=== PATIENT | female | born 1950 | race Caucasian/White ===

== ENCOUNTER 2017-01-02 10:05 | Outpatient (CLI) | payer MEDICARE, OTHER ==
--- NOTE | 2017-01-03 15:53 | Mammography Report ---
DIGITAL SCREENING MAMMOGRAM: 01/02/2017 CLINICAL INDICATION: A 66-year-old, for screening, history of benign right breast biopsy. COMPARISON: 06/2012, 03/2011, 10/2009, 05/2008, 05/2007. TECHNIQUE: Routine CC and MLO projections were obtained of the breasts. FINDINGS: The breasts demonstrate scattered fibroglandular densities bilaterally. Coarse and punctat e, typically benign calcifications are present. Intramammary lymph node in the left breast is stable. No suspicious masses, clustered microcalcifications, or regions of architectural distortion are iden tified. IMPRESSION: BENIGN FINDINGS. RECOMMENDATION: ROUTINE ANNUAL SCREENING UNLESS OTHERWISE CLINICALLY INDICATED. BIRADS CATEGORY 2-BENIGN FINDINGS. STANDARD QUALIFYING STATEMENTS 1. This examination was reviewed with the aid of Computer-Aided Detection (CAD). 2. A negative or benign imaging report should not delay biopsy if clinically suspicious findings are present. Consider surgical consultation if warranted. More than 5% of cancers are not identified by i maging. 3. Dense breasts may obscure an underlying neoplasm. JOB #: [id number] EXT JOB #:[id number]
== END 2017-01-02 10:06 | disposition home or self-care (01) ==
LOC: DI 10:05
PROVIDERS: ATTEND Physician Assistant
DX: Z12.31 Encounter for screening mammogram for malignant neoplasm of breast (principal)
CPT/HCPCS: 77067

== ENCOUNTER 2018-07-02 16:26 | Emergency (ER) | payer MEDICARE, OTHER ==
[2018-07-02] MEDS ORDERED: predniSONE 20 MG TABLET PO STA (16:56)
[2018-07-02] MEDS ORDERED: ALBUTEROL NEB 2.5 MG/3 ML INH STA (16:56)
[2018-07-02] MEDS ORDERED: BENZONATATE 100 MG CAPSULE PO STA (16:56)
--- NOTE | 2018-07-02 16:57 | ED Physician Documentation ---
PD HPI URI - Stated complaint Stated Complaint: SOA/COUGH/RT EAR PX - Chief complaint Chief Complaint: Resp - History obtained from History obtained from: Patient, Family - History of Present Illness Timing - onset: Other (Sick for about 2 weeks with increasing productive cough and shortness of breath acutely worse since yesterday. She has been wheezing. She denies pedal edema or calf pain. She had low-grade fevers at home.) Review of Systems Constitutional: reports: Fever, Chills, Fatigue Nose: denies: Rhinorrhea / runny nose, Congestion Throat: denies: Sore throat Respiratory: reports: Dyspnea, Cough GI: denies: Abdominal Pain PD PAST MEDICAL HISTORY - Past Medical History Cardiovascular: Hypertension, High cholesterol Endocrine/Autoimmune: Type 2 diabetes Psych: Anxiety, Obsessive compulsive disorder Musculoskeletal: Fibromyalgia - Past Surgical History Past Surgical History: Yes Ortho: Knee replacement, Carpal Tunnel surgery /CLOTH COLORS EXAMINER: Hysterectomy - Present Medications Home Medications: Ambulatory Orders Medication Instructions Recorded Confirmed ALPRAZolam [Xanax] 0.25 mg PO BID PRN 09/23/12 09/21/14 Diazepam [Valium] 5 mg PO Q6-8H PRN #15 tablet 09/23/12 09/21/14 Enoxaparin [Lovenox] 100 mg SUBQ Q12H #10 syringe 09/23/12 09/21/14 Escitalopram [Lexapro] 20 mg PO DAILY 09/23/12 09/21/14 Gabapentin 300 mg PO TID 09/23/12 09/21/14 Omeprazole [PriLOSEC] 20 mg PO DAILY 09/23/12 09/21/14 Triamterene/Hydrochlorothiazid 1 each PO BID 09/23/12 09/21/14 [Triamterene-Hctz 75-50 mg Tab] Warfarin Sodium [Coumadin] 5 mg PO DAILY #15 tablet 09/23/12 09/21/14 Zolpidem [Ambien] 10 mg PO HS 09/23/12 09/21/14 Albuterol Sulfate [Albuterol 2 puffs IH Q4HR PRN #1 hfa.aer.ad 09/21/14 Sulfate Hfa] Azithromycin [Zithromax] 250 mg PO DAILY #4 tablet 09/21/14 Benzonatate [Tessalon] 100 mg PO TID PRN #20 capsule 09/21/14 Dexamethasone [Decadron] 4 mg PO BIDWM #8 tablet 09/21/14 Albuterol Sulf [Ventolin Hfa 1 - 2 puffs INH Q4HR PRN #1 inhaler 07/02/18 Inhaler] Benzonatate [Tessalon Perle] 100 - 200 mg PO TID PRN #30 capsule 07/02/18 Doxycycline Hyclate 100 mg PO BID #20 capsule 07/02/18 predniSONE [Deltasone] 60 mg PO DAILY 5 Days tablet 07/02/18 - Allergies Allergies/Adverse Reactions: Allergies Allergy/AdvReac Type Severity Reaction Status Date / Time phenylalanine Allergy Intermediate Itching Verified 07/02/18 16:41 codeine [Codeine] Allergy Mild UNKNOWN Verified 07/02/18 16:41 diphenhydramine HCl * Allergy Mild UNKNOWN Verified 07/02/18 16:41 [From Benadryl] hydrocodone [Hydrocodone] AdvReac Intermediate CHEST Verified 07/02/18 16:41 TIGHTNESS - Social History Does the pt smoke?: Yes Smoking Status: Current every day smoker Does the pt drink ETOH?: No - Family History Family history: reports: Non contributory PD ED PE NORMAL - Vitals Vital signs reviewed: Yes - General General: Alert and oriented X 3, Other (Frequent coughing) - HEENT HEENT: PERRL, EOMI - Neck Neck: Supple, no meningeal sign, No bony TTP - Cardiac Cardiac: RRR, No murmur - Respiratory Respiratory: No respiratory distress, Other (Mildly wheezy throughout, good air motion) - Abdomen Abdomen: Soft, Non tender - Back Back: No CVA TTP, No spinal TTP - Derm Derm: Normal color, Warm and dry, No rash - Extremities Extremities: No edema, No calf tenderness / cord - Neuro Neuro: Alert and oriented X 3, Normal speech Results - Vitals Vitals: Vital Signs - 24 hr 07/02/18 07/02/18 07/02/18 16:38 17:09 18:26 Temperature 36.8 C 37.7 C H Heart Rate 107 H 104 H 104 H Respiratory 26 H 16 28 H Rate Blood Pressure 136/71 H 158/81 H O2 Saturation 93 94 Oxygen O2 Source Room air - Labs Labs: Laboratory Tests 02/19/19 02/19/19 02/19/19 17:09 17:09 17:09 WBC 14.6 H RBC 4.10 L Hgb 12.8 Hct 38.1 MCV 92.9 MCH 31.1 H MCHC 33.5 RDW 13.7 Plt Count 257 MPV 8.6 Neut # (Auto) 12.1 H Lymph # (Auto) 1.5 Webb # (Auto) 0.9 Eos # (Auto) 0.1 Baso # (Auto) 0.1 Absolute Nucleated RBC 0.01 Nucleated RBC % 0.1 Sodium 132 L Potassium 3.6 Chloride 98 L Carbon Dioxide 21 Anion Gap 13.0 BUN 22 H Creatinine 1.3 H Estimated GFR (MDRD) 41 L Glucose 161 H Calcium 9.2 Total Bilirubin 0.7 AST 27 ALT 22 Alkaline Phosphatase 59 Troponin I < 0.04 Total Protein 8.3 H Albumin 3.9 Globulin 4.4 H Albumin/Globulin Ratio 0.9 L Lipase 24 Influenza A (Rapid) Influenza B (Rapid) 07/02/18 17:43 WBC RBC Hgb Hct MCV MCH MCHC RDW Plt Count MPV Neut # (Auto) Lymph # (Auto) Webb # (Auto) Eos # (Auto) Baso # (Auto) Absolute Nucleated RBC Nucleated RBC % Sodium Potassium Chloride Carbon Dioxide Anion Gap BUN Creatinine Estimated GFR (MDRD) Glucose Calcium Total Bilirubin AST ALT Alkaline Phosphatase Troponin I Total Protein Albumin Globulin Albumin/Globulin Ratio Lipase Influenza A (Rapid) Negative Influenza B (Rapid) Negative - Rads (name of study) 2v Chest Radiology: EMP read contemporaneously PD MEDICAL DECISION MAKING - ED course ED course: This is a 67-year-old woman with long-standing tobacco abuse who presents with a bronchitic type illness. Her chest x-ray is clear. She is wheezy on exam but nothing focal. Her pulse oximetry is normal. She is feeling somewhat improved after Tessalon and another breathing treatment here. Noting that codeine was held given her allergy to same. She will be started on antibiotics given the high risk of underlying lung disease and COPD although she carries no formal diagnosis of this. Also steroids. Departure - Departure Disposition: 01 Home, Self Care Clinical Impression: Bronchitis Condition: Good Record reviewed to determine appropriate education?: Yes Instructions: ED Bronchitis Asthmatic Prescriptions: Albuterol Sulf [Ventolin Hfa Inhaler] 1 - 2 puffs INH Q4HR PRN #1 inhaler PRN Reason: Shortness Of Air/Wheezing Benzonatate [Tessalon Perle] 100 - 200 mg PO TID PRN #30 capsule PRN Reason: Cough Doxycycline Hyclate 100 mg PO BID #20 capsule predniSONE [Deltasone] 60 mg PO DAILY 5 Days tablet Comments: Call your doctor to arrange a follow-up appointment, make the next available appointment. In the interim, return anytime if worse or if new symptoms develop. . As discussed it is imperative to quit smoking.
[2018-07-02 17:15] LABS: BASOPHILS # (AUTO) 0.1 10^3/uL (0.0-0.1); BASOPHILS % (AUTO) 0.5 %; EOSINOPHILS # (AUTO) 0.1 10^3/uL (0.0-0.7); EOSINOPHILS % (AUTO) 0.5 %; HGB - HEMOGLOBIN 12.8 g/dL (12.0-16.0); LYMPHOCYTES # (AUTO) 1.5 10^3/uL (1.5-3.5); LYMPHOCYTES % (AUTO) 10.5 %; MEAN CORPUSCULAR HEMOGLOBIN 31.1 pg (27.0-31.0); MEAN CORPUSCULAR HGB CONC 33.5 g/dL (32.0-36.0); MEAN CORPUSCULAR VOLUME 92.9 fL (81.0-99.0); MEAN PLATELET VOLUME 8.6 fL (7.9-10.8); MONOCYTES # (AUTO) 0.9 10^3/uL (0.0-1.0); MONOCYTES % (AUTO) 5.8 %; NEUTROPHILS # (AUTO) 12.1 10^3/uL (1.5-6.6); NEUTROPHILS % (AUTO) 82.7 %; PLT - PLATELET COUNT 257 10^3/uL (130-450); RED CELL DISTRIBUTION WIDTH 13.7 % (12.0-15.0); WHITE BLOOD COUNT 14.6 x10^3/uL (4.8-10.8)
[2018-07-02 17:30] LABS: ALBUMIN 3.9 g/dL (3.2-5.5); ALBUMIN/GLOBULIN RATIO 0.9 (1.0-2.2); BILIRUBIN,TOTAL 0.7 mg/dL (0.2-1.0); CALCIUM 9.2 mg/dL (8.5-10.3); CREATININE 1.3 mg/dL (0.4-1.0); TOTAL PROTEIN 8.3 g/dL (6.7-8.2)
--- NOTE | 2018-07-02 18:29 | XRAY Report ---
Reason: cough Procedure Date: 07/02/2018 Accession Number: [id number] / [id number] Procedure: XR - Chest 2 View X-Ray CPT Code: 83622 FULL RESULT: EXAM: CHEST RADIOGRAPHY EXAM DATE: 07/02/2018 06:00 PM. CLINICAL HISTORY: Persistent cough. COMPARISON: CHEST 2 VIEW PA/LAT 04/01/2015 3:22 PM. TECHNIQUE: 2 views. FINDINGS: Lungs/Pleura: No focal opacities evident. No pleural effusion. No pneumothorax. Normal volumes. Mediastinum: Heart and mediastinal contours are unremarkable. Other: No compression fractures. IMPRESSION: Normal 2-view chest radiography. RADIA
[2018-07-02] MEDS ORDERED: DOXYCYCLINE 100 MG TABLET PO STA (18:59)
[2018-07-02 19:13] VITALS: BP 166/85
== END 2018-07-02 19:21 | disposition home or self-care (01) ==
LOC: ED 16:26
DX: J40 Bronchitis, not specified as acute or chronic (principal); F17.200 Nicotine dependence, unspecified, uncomplicated; I10 Essential (primary) hypertension; E11.9 Type 2 diabetes mellitus without complications; Z79.01 Long term (current) use of anticoagulants
CPT/HCPCS: 36415; 71046; 80053; 83690; 84484; 85025; 87275; 87276; 94640; 99283; A9270; J7512

== ENCOUNTER 2018-10-25 13:46 | Outpatient (CLI) | payer MEDICARE, OTHER ==
--- NOTE | 2018-10-28 09:06 | MRI Report ---
Reason: SPINAL STENOSIS, LUMBAR REGION W/NEUROGENIC CLAUDI Procedure Date: 10/25/2018 Accession Number: [id number] / [id number] Procedure: MRI - Lumbar Spine W/O CPT Code: FULL RESULT: EXAM: MRI LUMBAR SPINE WITHOUT CONTRAST EXAM DATE: 10/25/2018 02:47 PM. CLINICAL HISTORY: Spinal stenosis in lumbar region with neurogenic claudication. COMPARISON: LUMBAR W/O 02/22/2015 3:46 PM. TECHNIQUE: Multiplanar, multisequence T1-weighted and fluid-sensitive sequences of the lumbar spine from T12 to S1 without contrast. Other: None. FINDINGS: Spinal Canal: The conus terminates at L1. The conus medullaris and cauda equina are unremarkable. Alignment: Approximately 2 mm posterior subluxation L3 on L4 and slight posterior subluxation L5 on S1. Bone Marrow: Five [id number] lumbar vertebral bodies are assumed. Mild diskogenic endplate changes. No fracture. No destructive bone lesion. Increased fatty change and decreased edema at the L4-L5 level. Disk Levels/Facets: T12-L1: Unremarkable. L1-L2: Moderate disk height loss and dehydration. Annular disk bulge and moderate degenerative facet arthropathy. Mild central canal narrowing unchanged. L2-L3: Moderate disk height loss and dehydration. Annular disk bulge with broad-based foraminal protrusions and moderate degenerative facet arthropathy. Mild central canal stenosis and mild inferior foraminal narrowing unchanged. L3-L4: Mild disk height loss and dehydration. Retrolisthesis. Annular disk bulge and mild degenerative facet arthropathy. Broad-based foraminal protrusions. Mild central canal narrowing and mild inferior foraminal narrowing unchanged. L4-L5: Moderate disk height loss. Annular disk bulge with broad-based foraminal protrusions and moderate degenerative facet arthropathy. Right foraminal annular fissure. Severity of disk bulge is decreased. Moderate to severe central canal stenosis slightly decreased in severity compared to prior. Mild bilateral foraminal stenosis significantly improved on the right and not significantly changed on the left. L5-S1: Moderate disk height loss and dehydration. Annular disk bulge with superimposed left paracentral and subarticular zone disk protrusion/extrusion with mass effect on the left S1 nerve root. Increased or new from prior. Musculature: Fatty atrophy of the lower paraspinous musculature. Other: The partially visualized retroperitoneum is unremarkable. IMPRESSION: 1. L4-L5 moderate to severe central canal stenosis and mild bilateral foraminal stenosis. Central canal and right foraminal stenosis decreased from prior. 2. L5-S1 new or increased left paracentral and subarticular zone disk extrusion/protrusion with mass effect on the left S1 nerve root. 3. Otherwise multilevel lumbar degenerative disk and facet arthropathy unchanged. Comment: The following findings are so common in adults without low back pain that while we report their presence, they must be interpreted with caution and in the context of the clinical situation. (Reference Monroek et al, Spine 2001) Prevalence of findings in patients without low back pain: Disk degeneration (any evidence): 92% Disk desiccation/T2 signal loss: 83% Disk height loss: 56% Disk bulge: 64% Disk protrusion: 32% Annular tear/high intensity zone: 38% RADIA
== END 2018-10-25 13:47 | disposition home or self-care (01) ==
LOC: DI 13:46
PROVIDERS: ATTEND Orthopaedic Surgery
DX: M51.36 Other intervertebral disc degeneration, lumbar region (principal); M48.061 Spinal stenosis, lumbar region without neurogenic claudication; M51.27 Other intervertebral disc displacement, lumbosacral region; M47.816 Spondylosis without myelopathy or radiculopathy, lumbar region; M43.16 Spondylolisthesis, lumbar region
CPT/HCPCS: 72148